=== PATIENT | female | born 1945 | race Caucasian/White ===

== ENCOUNTER → 2016-12-07 | Outpatient (CLI) | payer MEDICARE, OTHER ==
[~2016-12-07] MED LIST: DICL50TA4 PO; HYDR-3101 PO; L.AC1CAP6 PO; MONT10TA6 PO; MULT1TAB52 PO
[2016-12-07 09:41] LABS: BASOPHIL # 0.1 10^3/uL (0.0-0.1); BASOPHIL % 0.7 % (0.0-0.2); EOSINOPHIL # 0.3 10^3/uL (0.0-0.2); EOSINOPHIL % 3.5 % (0.0-5.0); HEMOGLOBIN 14.1 g/dL (12.0-15.0); LYMPHOCYTES # 2.4 10^3/uL (1.0-4.8); LYMPHOCYTES % 32.5 % (24.0-44.0); MEAN CELL HGB 28.6 pg (26-34); MEAN CORP VOLUME 86.6 fL (78-100); MEAN PLATELET VOLUME 11.1 fL (7.8-11.0); MONOCYTES # 0.6 10^3/uL (0.3-0.8); MONOCYTES % 8.2 % (5.0-12.0); NEUTROPHIL # 4.1 10^3/uL (1.8-7.7); NEUTROPHILS % 54.8 % (41.0-85.0); RED CELL DISTRIBUTION WIDTH 14.4 % (11.5-14.5); WHITE BLOOD CELL 7.4 10^3/uL (4.5-11.0)
[2016-12-07 10:09] LABS: CALCIUM 9.3 mg/dL (8.4-10.5); CARBON DIOXIDE 25.9 mmol/L (20.0-32)
[2016-12-07 10:16] LABS: BILIRUBIN,URINE NEGATIVE (NEGATIVE); UROBILINOGEN,URINE NORMAL (NEGATIVE)
[2016-12-07 10:18] LABS: APPEARANCE,URINE CLEAR (CLEAR); UA COLOR STRAW (YELLOW)
--- NOTE | 2016-12-10 09:16 | DIREP ---
PROCEDURE: BONE DENSITY PERIPHERAL INDICATIONS: OSTEOPOROSIS COMPARISON: None. FINDINGS: Femur Proximal RIGHT femur bone mineral density (BMD) (g/cm2): 1.016 T-score : 0.1 Proximal LEFT femur bone mineral density (BMD) (g/cm2): 1.086 T-score: 0.6 Lumbar Lumbar bone mineral density (BMD) (g/cm2): 1.184 T-score : -0.1 Imaging- No significant findings CONCLUSION: 1. Normal bone mineral density. 2. Based on the [place] FRAX study, the patient's 10-year probability of a major osteoporotic fracture (clinical spine, forearm, hip or shoulder) is 14.2 % , and the 10-year probability of a hip fracture is 1.7 %. SUGGESTED RECOMMENDATIONS: Normal & Osteopenia: Consideration should be given to use of calcium supplementation, daily multiple vitamins and adequate exercise, as preventive measures against osteoporosis, if clinically indicated. Osteoporosis & Severe Osteoporosis: In addition to the above, consideration should be given to medical therapy against osteoporosis, if clinically indicated. Dictated by: Jesus Shi MD on 12/07/2016 at 10:25 AM [facility]
== END | disposition home or self-care (01) ==
LOC: BD 09:06
PROVIDERS: ATTEND Internal Medicine
DX: Z13.220 Encounter for screening for lipoid disorders (principal); Z13.29 Encounter for screening for other suspected endocrine disorder; M81.0 Age-related osteoporosis without current pathological fracture; Z79.899 Other long term (current) drug therapy; D53.9 Nutritional anemia, unspecified; D50.9 Iron deficiency anemia, unspecified
CPT/HCPCS: 36415; 77080; 80053; 80061; 81002; 82043; 83036; 84439; 84443; 84481; 85025

== ENCOUNTER → 2016-12-25 | Outpatient (CLI) | payer MEDICARE, OTHER | END | disposition home or self-care (01) | LOC: LAB 11:57 | PROVIDERS: ATTEND Internal Medicine | DX: E11.42 Type 2 diabetes mellitus with diabetic polyneuropathy (principal) | CPT/HCPCS: 36415; 82043 ==

== ENCOUNTER → 2017-06-09 | Outpatient (CLI) | payer MEDICARE, OTHER ==
--- NOTE | 2017-06-09 11:11 | DIREP ---
PROCEDURE:Digital Screening Mammogram TECHNIQUE:MLO and CC digital images of each breast are provided. Computer Assisted Detection (CAD) was utilized. COMPARISON:[facility], , MAMMO BILATERAL SCREENING WITH CAD, 05/04/2016, 03:09 PM. INDICATIONS:SCREENING BREAST COMPOSITION:There are scattered areas of fibroglandular density. FINDINGS:There are no grouped microcalcifications, masses, or architectural distortions to suggest malignancy. There is no significant change as compared with the previous examination(s). IMPRESSION:No mammographic evidence of malignancy. RECOMMENDATIONS:Routine Screening Mammography per [employer] guidelines. OVERALL FINAL ASSESSMENT:BI-RADS 1 - Negative Mammogram Note: This facility participates in a mammography screening patient reminder system. Dictated by: Claude Hedrick M.D. on 06/09/2017 at 11:05 AM
== END | disposition home or self-care (01) ==
LOC: RAD 10:17
PROVIDERS: ATTEND Internal Medicine
DX: Z12.31 Encounter for screening mammogram for malignant neoplasm of breast (principal)
CPT/HCPCS: 77067